=== PATIENT | female | born 1970 | race Caucasian/White ===

== ENCOUNTER → 2016-08-04 | Outpatient (CLI) | payer OTHER ==
[~2016-08-04] MED LIST: CATHETER FLUSH 10 ML SYR IV PRN; IOHEXOL 350 MG/ML 100 ML (OMNIPAQUE 350) VIAL IV ONE; NS 100 ML (IVPB) BAG IV ONE
--- NOTE | 2016-08-04 10:28 | Diagnostic Imaging Report ---
PROCEDURE: CT angiography of the head and CT angiography of the neck with and without contrast. TECHNIQUE: Contiguous noncontrast images were obtained from the skull base through the vertex. After intravenous contrast administration, helical CT angiography of the neck was performed. Source data was reformatted into multiple MIP projections. Delayed post contrast acquisition was also obtained. INDICATION: Headache. 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 80 mL of Omnipaque 350 administered intravenously. No prior studies are available for comparison at our institution. FINDINGS: CTA neck: The aortic arch and origin of the great vessels demonstrate no significant abnormality. Normal variation of common origin of the brachiocephalic and left common carotid artery is seen. The subclavian arteries appear patent. The left common carotid artery and the left internal and external carotid arteries in the neck are patent. The right brachiocephalic, the right common carotid, and the right internal and external carotid arteries are all patent. Soft tissues in the neck demonstrate no significant lymphadenopathy and symmetric appearance of the parotid and submandibular glands. The thyroid gland appears unremarkable. The mucosal pharyngeal space demonstrates slight asymmetry in the oropharynx which could be related to lymphoid hyperplasia and asymmetric secretions with no definitive solid mass identified. The left vertebral artery is patent. The right vertebral artery is also patent. The left vertebral artery is slightly larger in caliber compared to the right side. CTA head: Unenhanced phase demonstrates no intracranial hemorrhage. Postcontrast parenchymal phase demonstrates no enhancing brain lesion. There is a stent in the intracranial portion of the left internal carotid artery centered around the ophthalmic segment. It extends distally just proximal to the bifurcation into the MCA and FRIDA and is proximally within the midportion of the cavernous segment of the left ICA. Beam hardening artifacts prevent accurate assessment of the stent lumen with suggestion of contrast filling, however, suggesting stent patency. The left ophthalmic artery is very small in caliber but appears opacified. The right ICA is normal. Bilateral FRIDA and MCA arteries are patent. No significant stenosis or occlusion seen. The posterior circulation demonstrates patent relatively small caliber vertebral arteries and basilar artery. There are well-formed small-sized bilateral PCoA contributing to the perfusion into the COILER bilaterally. There is patency of the central venous sinuses seen. IMPRESSION: CTA neck: Normal variation of common origin of the brachiocephalic and left common carotid artery. No significant stenosis or vessel occlusion seen. CTA head: There is a stent seen in the distal aspect of the left internal carotid artery with beam hardening artifacts from the metallic struts noted. There is suggestion of luminal patency and contrast filling seen. No significant central vessel stenosis, occlusion, or aneurysm seen. Dictated by: Dictated on workstation # [id number]
== END ==
LOC: RAD 07:27
PROVIDERS: ATTEND Nurse Practitioner Family
DX: R51 Headache (principal); Z95.828 Presence of other vascular implants and grafts; I67.1 Cerebral aneurysm, nonruptured; I72.6 Aneurysm of vertebral artery
CPT/HCPCS: 70496; 70498